=== PATIENT | male | born 1975 | race Hispanic/Latino ===

== ENCOUNTER 2020-08-21 17:48 | Emergency (ER) | payer OTHER ==
[~2020-08-21] VITALS: Ht 175.3 cm; Wt 102.1 kg
== END 2020-08-21 19:12 | disposition home or self-care (01) ==
LOC: FSED 18:15
DX: J32.9 Chronic sinusitis, unspecified (principal); R51.9 Headache, unspecified
CPT/HCPCS: 70450; 80053; 81003; 85025; 99283